=== PATIENT | female | born 1980 | race Caucasian/White ===

== ENCOUNTER 2018-11-09 15:09 | Emergency (ER) | payer SELFPAY ==
--- NOTE | 2018-11-09 15:43 | ER Document Report ---
ED Medical Screen (RME) - General Chief Complaint: Neck Problem Stated Complaint: NECK PAIN/NAUSEA/HEADACHES Time Seen by Provider: 11/09/18 15:31 Mode of Arrival: Ambulatory Information source: Relative Notes: 38-year-old female at approximately 15 weeks gestation per last menstrual period which she reports is July 24, 2018 presents with complaint of neck pain, headache and nausea that started yesterday. Daughter acts as box blank machine feeder and states that 1 week prior to arrival the patient did have a fall where she struck her head on the carpeted floor. No loss of consciousness. She states that she did not have neck pain at that time. Patient denies history of hypertension but has a blood pressure of 183/105 here. I have greeted and performed a rapid initial assessment of this patient. A comprehensive ED assessment and evaluation of the patient, analysis of test results and completion of medical decision making process we will be contacted by additional ED providers. PHYSICAL EXAMINATION: Vital signs reviewed-hypertensive 183/105 GENERAL: Appears to be in pain LUNGS: No respiratory distress NEUROLOGICAL: Normal speech, PSYCH: Normal mood, normal affect. SKIN: Warm, Dry, normal turgor, no rashes or lesions noted. TRAVEL OUTSIDE OF THE [place] IN LAST 30 DAYS: No - HPI Onset: Yesterday Onset/Duration: Gradual, Persistent Quality of pain: Throbbing Severity: Moderate Associated Symptoms: Nausea Exacerbated by: Movement Relieved by: Denies Similar symptoms previously: No Recently seen / treated by doctor: No - Related Data Smoking: Non-smoker Frequency of alcohol use: None Drug Abuse: None Allergies/Adverse Reactions: No Known Allergies Allergy (Unverified 11/09/18 15:13) Physical Exam - Vital signs Vitals: Temp Pulse Resp BP Pulse Ox 98.9 F 89 16 183/105 H 98 11/09/18 15:15 11/09/18 15:15 11/09/18 15:15 11/09/18 15:15 11/09/18 15:15 Course - Vital Signs Vital signs: Temp Pulse Resp BP Pulse Ox 98.9 F 89 16 183/105 H 98 11/09/18 15:15 11/09/18 15:15 11/09/18 15:15 11/09/18 15:15 11/09/18 15:15
[2018-11-09 16:06] LABS: ABSOLUTE BASOPHILS # (AUTO) 0.1 10^3/uL (0.0-0.2); ABSOLUTE EOSINOPHILS # (AUTO) 0.4 10^3/uL (0.0-0.6); ABSOLUTE LYMPHOCYTES (AUTO) 2.5 10^3/uL (0.5-4.7); ABSOLUTE MONOCYTES (AUTO) 0.5 10^3/uL (0.1-1.4); ABSOLUTE NEUT (AUTO) 5.3 10^3/uL (1.7-8.2); BASOPHILS % (AUTO) 0.8 % (0-2); EOSINOPHILS % (AUTO) 4.1 % (0-6); HEMATOCRIT 35.8 % (36.0-47.0); HEMOGLOBIN 11.7 g/dL (12.0-15.5); LYMPHOCYTES % (AUTO) 28.6 % (13-45); MEAN CORPUSCULAR HEMOGLOBIN 26.4 pg (27.0-33.4); MEAN CORPUSCULAR HGB CONC 32.8 g/dL (32.0-36.0); MEAN CORPUSCULAR VOLUME 80 fl (80-97); MONOCYTES % (AUTO) 5.5 % (3-13); PLATELET COUNT 360 10^3/uL (150-450); RED BLOOD COUNT 4.46 10^6/uL (3.72-5.28); RED CELL DISTRIBUTION WIDTH 14.9 % (11.5-14.0); TOTAL CELLS COUNTED % (AUTO) 100 %; WHITE BLOOD COUNT 8.7 10^3/uL (4.0-10.5)
[2018-11-09 16:23] LABS: ALANINE AMINOTRANSFERASE 15 U/L (9-52); ALBUMIN 3.8 g/dL (3.5-5.0); ALKALINE PHOSPHATASE 110 U/L (38-126); ANION GAP 8 (5-19); ASPARTATE AMINO TRANSFERASE 23 U/L (14-36); BILIRUBIN,DIRECT 0.3 mg/dL (0.0-0.4); BILIRUBIN,TOTAL 0.4 mg/dL (0.2-1.3); BLOOD UREA NITROGEN 12 mg/dL (7-20); CARBON DIOXIDE 29 mmol/L (22-30); CHLORIDE 103 mmol/L (98-107); GLUCOSE 127 mg/dL (75-110); POTASSIUM 4.1 mmol/L (3.6-5.0); SODIUM 139.6 mmol/L (137-145); TOTAL PROTEIN 7.3 g/dL (6.3-8.2)
[2018-11-09] MEDS ORDERED: ONDANSETRON HCL INJ/PF 4 MG/2 ML SDV IV ONE (16:48)
[2018-11-09] MEDS ORDERED: HYDROMORPHONE HCL INJ/PF 2 MG/ML AMPULE IV ONE ×2 (16:48→18:45)
[2018-11-09] MEDS ORDERED: DIAZEPAM INJ 10 MG/2 ML DISP.SYRIN IV ONE (17:10)
[2018-11-09] MEDS ORDERED: CYCLOBENZAPRINE HCL 10 MG TABLET PO ONE (17:17)
--- NOTE | 2018-11-09 17:19 | ER Document Report ---
ED General - General Chief Complaint: Neck Problem Stated Complaint: NECK PAIN/NAUSEA/HEADACHES Time Seen by Provider: 11/09/18 15:31 Mode of Arrival: Ambulatory Notes: 38-year-old female presents emergency department complaints of left-sided neck pain that started yesterday. Pain has been constant in nature. Patient is [place]-speaking. Her daughter is translating. Daughter states that it is a throbbing sensation in the left neck. Does not radiate. No alleviating factors. Exacerbated with trying to turn neck. Patient has not tried any medication prior to arrival. Patient is having some nausea but denies a headache. Patient states that she did fall a week ago onto a carpeted surface and she hit her head. No loss of consciousness. She denies any neck pain at that time. Patient states that she is approximately 15 weeks . She states her last menstrual period was July 24, 2018. Patient is hypertensive in the emergency department. She is not currently on any medications. Has followed up with an OB in [place]. TRAVEL OUTSIDE OF THE [place] IN LAST 30 DAYS: No - HPI Onset: Yesterday Onset/Duration: Gradual Quality of pain: Throbbing Severity: Moderate Associated symptoms: Nausea Exacerbated by: Movement Relieved by: Denies Similar symptoms previously: No Recently seen / treated by doctor: No - Related Data Allergies/Adverse Reactions: No Known Allergies Allergy (Unverified 11/09/18 15:13) Past Medical History - General Information source: Patient, Relative - Social History Smoking Status: Never Smoker Frequency of alcohol use: None Drug Abuse: None Family History: Reviewed & Not Pertinent Patient has suicidal ideation: No Patient has homicidal ideation: No Renal/ Medical History: Denies: Hx Peritoneal Dialysis Review of Systems - Review of Systems Constitutional: No symptoms reported EENT: No symptoms reported Cardiovascular: No symptoms reported Respiratory: No symptoms reported Gastrointestinal: No symptoms reported Musculoskeletal: Neck pain Skin: No symptoms reported Hematologic/Lymphatic: No symptoms reported Neurological/Psychological: No symptoms reported -: Yes All other systems reviewed and negative Physical Exam - Vital signs Vitals: Temp Pulse Resp BP Pulse Ox 98.9 F 89 16 183/105 H 98 11/09/18 15:15 11/09/18 15:15 11/09/18 15:15 11/09/18 15:15 11/09/18 15:15 - Notes Notes: PHYSICAL EXAMINATION: GENERAL: Well-appearing, well-nourished and in no acute distress. HEAD: Atraumatic, normocephalic. EYES: Pupils equal round and reactive to light, extraocular movements intact, conjunctiva are normal. ENT: Nares patent, oropharynx clear without exudates. Moist mucous membranes. NECK: Left sternocleidomastoid tenderness to palpation. No cervical spine tenderness to palpation. No meningeal signs. Patient says pain is exacerbated with trying to turn head to the right. LUNGS: Breath sounds clear to auscultation bilaterally and equal. No wheezes rales or rhonchi. HEART: Regular rate and rhythm without murmurs ABDOMEN: Soft, nontender, nondistended abdomen. No guarding, no rebound. No masses appreciated. Female : deferred Musculoskeletal: Normal range of motion, no pitting or edema. No cyanosis. NEUROLOGICAL: Cranial nerves grossly intact. Normal speech, normal gait. Normal sensory, motor exams PSYCH: Normal mood, normal affect. SKIN: Warm, Dry, normal turgor, no rashes or lesions noted. Course - Re-evaluation Re-evalutation: 11/09/18 19:53 Labs and imaging obtained. CT of the head was normal. Patient is hypertensive in the emergency department. She was given a total of 20 mg of hydralazine. The patient was insisting that she is . Urine test was done and negative. Beta quant was done and is negative. Physical exam was remarkable for sternocleidomastoid tenderness to palpation on the Left. Pain worse with trying to look to the right. The patient given Dilaudid for pain and Flexeril for muscle relaxation. On reevaluation, patient states that the muscle spasm has improved. Her blood pressure is currently 147/93. I will give the patient a prescription for Flexeril. I instructed her to take the medication as directed, to follow up with her primary care physician this week, and to return for worsening symptoms. The patient is agreeable with the plan of care. - Vital Signs Vital signs: Temp Pulse Resp BP Pulse Ox 98.9 F 95 15 170/110 H 95 11/09/18 15:15 11/09/18 15:43 11/09/18 19:01 11/09/18 19:01 11/09/18 19:01 - Laboratory Result Diagrams: 11/09/18 15:48 11/09/18 15:48 Laboratory results interpreted by me: 11/09/18 11/09/18 15:48 15:48 Hgb 11.7 L Hct 35.8 L MCH 26.4 L RDW 14.9 H Glucose 127 H Discharge - Discharge Clinical Impression: Muscle spasm Condition: Good Disposition: HOME, SELF-CARE Instructions: Muscle Relaxers ([facility]), Myalagia (Muscle Pain) ([facility]) Prescriptions: Cyclobenzaprine HCl [Flexeril 10 mg Tablet] 10 mg PO TIDP PRN #15 tab PRN Reason: Referrals: TRENA MARTINES DO [NO LOCAL MD] - Follow up as needed
[2018-11-09] MEDS ORDERED: HYDRALAZINE HCL INJ/PF 20 MG/1 ML SDV IV ONE ×2 (17:20→18:16)
--- NOTE | 2018-11-09 17:35 | RADIOLOGY REPORT (SQ) ---
EXAM DESCRIPTION: CT HEAD WITHOUT COMPLETED DATE/TIME: 11/09/2018 5:03 pm REASON FOR STUDY: headache COMPARISON: None. TECHNIQUE: Axial images acquired through the brain without intravenous contrast. Images reviewed wi th bone, brain and subdural windows. Additional sagittal and coronal reconstructions were generated. Images stored on PACS. All CT scanners at this facility use dose modulation, iterative reconstruction, and/or weight based d osing when appropriate to reduce radiation dose to as low as reasonably achievable (ALARA). [facility]: Dose Right [facility]: CareDose [facility]: Dose Right [facility]: Teradose 4D [facility]: ExpoPromoter RADIATION DOSE: CT Rad equipment meets quality standard of care and radiation dose reduction techniq ues were employed. CTDIvol: 53.2 mGy. DLP: 964 mGy-cm. mGy. LIMITATIONS: None. FINDINGS: VENTRICLES: Normal size and contour. CEREBRUM: No masses. No hemorrhage. No midline shift. No evidence for acute infarction. Normal gra y/white matter differentiation. No areas of low density in the white matter. CEREBELLUM: No masses. No hemorrhage. No alteration of density. No evidence for acute infarction. EXTRAAXIAL SPACES: No fluid collections. No masses. ORBITS AND GLOBE: No intra- or extraconal masses. Normal contour of globe without masses. CALVARIUM: No fracture. PARANASAL SINUSES: No fluid or mucosal thickening. SOFT TISSUES: No mass or hematoma. OTHER: No other significant finding. IMPRESSION: NORMAL BRAIN CT WITHOUT CONTRAST. EVIDENCE OF ACUTE STROKE: NO. COMMENT: Quality ID # [id number]: Final reports with documentation of one or more dose reduction techniques (e.g., Automated exposure control, adjustment of the mA and/or kV according to patient size, use of iterative reconstruction technique) TECHNICAL DOCUMENTATION: JOB ID: [id number] [employer]- All Rights Reserved Reading location - IP/workstation name: [email or web address]
[2018-11-09 19:33] LABS: AMORPHOUS SEDIMENT,URINE TRACE /HPF; APPEARANCE,URINE SLIGHTLY-CLOUDY; BILIRUBIN,URINE NEGATIVE (NEGATIVE); COLOR,URINE YELLOW; GLUCOSE, URINE NEGATIVE (NEGATIVE); KETONES,URINE NEGATIVE (NEGATIVE); LEUKOCYTE ESTERASE,URINE NEGATIVE (NEGATIVE); NITRITE,URINE NEGATIVE (NEGATIVE); PROTEIN,URINE NEGATIVE (NEGATIVE); URINE SPECIFIC GRAVITY 1.014; UROBILINOGEN,URINE NEGATIVE mg/dL (<2.0)
[2018-11-09] MEDS ORDERED: DIPHENHYDRAMINE HCL 50 MG/ML VIAL IV ONE (20:21)
[2018-11-09 20:54] VITALS: BP 147/94
== END 2018-11-09 21:03 | disposition home or self-care (01) ==
LOC: ER 15:09
DX: O26.92 Pregnancy related conditions, unspecified, second trimester (principal); M62.838 Other muscle spasm; M54.2 Cervicalgia; R51 Headache; R11.0 Nausea; Z3A.15 15 weeks gestation of pregnancy
CPT/HCPCS: 96376; 99284; 96374; 96375; 36415; 84702; 85025; 81025; 80053; 81001; 70450; J1200; J0360; J1170; J2405